=== PATIENT | female | born 1960 | race African-American/Black ===

== ENCOUNTER 2017-07-07 08:27 | Observation (INO) | payer BC ==
[2017-07-07 09:02] LABS: #Basophils 0.1 thou/uL (0.0-0.2); #Lymphocytes 2.9 thou/uL (1.20-3.40); #Monocytes 0.4 thou/uL (0.11-0.59); #Neutrophils 2.9 thou/uL (1.40-6.50); %Eosinophils 0.7 % (0.0-10.0); %Lymphocytes 45.1 % (21.0-51.0); %Monocytes 6.8 % (0.0-10.0); Hematocrit 44.9 % (36.0-47.0); Mean Platelet Volume 9.2 fL (7.4-10.4); Red Blood Cell (RBC) Count 4.94 mill/uL (4.20-5.40); White Blood Cell (WBC) Count 6.3 thou/uL (4.8-10.8)
[2017-07-07 09:23] LABS: ALT (SGPT) 16 U/L (8-55); AST (SGOT) 15 U/L (5-34); Alkaline Phosphatase 85 U/L (40-150); Anion Gap 13 mmol/L (10-20); BUN (Urea Nitrogen) 14 mg/dL (9.8-20.1); Bilirubin, Total 0.5 mg/dL (0.2-1.2); CK (CPK) 178 U/L (29-168); Calc. Creatinine Clearance 0 mL/min (70-130); Calcium 9.2 mg/dL (7.8-10.44); Carbon Dioxide 22 mmol/L (22-29); Chloride 108 mmol/L (98-107); Estimated GFR-MDRD Greater than 90; Globulin 3.5 g/dL (2.4-3.5); Lipase 22 U/L (8-78); Protein, Total 7.4 g/dL (6.0-8.3)
[2017-07-07 09:27] LABS: Troponin I Less than 0.010 ng/mL (< 0.028)
--- NOTE | 2017-07-07 09:39 | RAD ---
CHEST 1 VIEW: Date: 07/07/17 Time: 1014 hours HISTORY: Mid sternal chest pain. FINDINGS: The heart size is normal. The lungs are well expanded without focal areas of consolidation, pneumotho rax, or pleural effusions. IMPRESSION: No radiographic evidence of acute cardiopulmonary process. POS: C
[2017-07-07] MEDS ORDERED: Acetaminophen 500 MG TAB ONE (10:38)
[2017-07-07] MEDS ORDERED: Nitroglycerin 0.4 MG TAB (25 Tab Bottle) ONE (10:38)
[2017-07-07 12:07] VITALS: BMI 55.0
[2017-07-07] MEDS ORDERED: Ondansetron ODT 4 MG TAB SL PRN (12:11)
[2017-07-07] MEDS ORDERED: Ondansetron HCl/PF 4 MG/2 ML Vial IVP PRN ×2 (12:11→12:14)
[2017-07-07] MEDS ORDERED: Acetaminophen 325 MG TAB PO PRN ×2 (12:11→12:14)
[2017-07-07] MEDS ORDERED: hydrALAZINE 20 MG/ML VIAL SLOW IVP PRN (12:14)
[2017-07-07] MEDS ORDERED: Mag-Al 1200 mg/1200 mg/30 ML UDCUP PO PRN (12:14)
[2017-07-07] MEDS ORDERED: Sodium Chloride 0.65% Nasal 44 ML BOT EA NARE PRN (12:14)
[2017-07-07] MEDS ORDERED: Loperamide HCl 2 MG CAP PO PRN (12:14)
[2017-07-07] MEDS ORDERED: Ondansetron ODT 4 MG TAB PO PRN (12:14)
[2017-07-07] MEDS ORDERED: Diabetic Tussin 200 MG/10 ML UDCUP PO PRN (12:14)
[2017-07-07] MEDS ORDERED: Senokot 8.6 MG TAB PO PRN (12:14)
[2017-07-07] MEDS ORDERED: Milk Of Magnesia 30 ML UDCUP PO PRN (12:14)
[2017-07-07] MEDS ORDERED: Loratadine 10 MG TAB PO PRN (12:14)
[2017-07-07] MEDS ORDERED: Chloraseptic Spray 180 ml Bottle PO PRN (12:14)
[2017-07-07] MEDS ORDERED: Nitroglycerin 0.4 MG TAB (25 Tab Bottle) SL PRN (12:14)
[2017-07-07] MEDS ORDERED: Zolpidem Tartrate 5 MG TAB PO PRN (12:14)
--- NOTE | 2017-07-07 13:19 | SS ---
PRIMARY CARE PHYSICIAN: Abby Wheatley M.D. REASON FOR ADMISSION: Chest pain. DATE OF ADMISSION: 07/07/2017 at 10:38 a.m. HISTORY OF PRESENT ILLNESS: A 57-year-old -Al[place]ian female with morbid obesity who came to [facility] emergency room with complaint of chest pain. The patient had chest pain, left-sided, which was sta rted this morning around 8:00 a.m. The patient's pain started when she was seated. There was no ass ociation of palpitations, but she was feeling mild shortness of breath. She was feeling mild nausea, but no vomiting. She denies any associated diaphoresis. She was feeling dyspnea on exertion. She denies any cough. She denies any pleuritic chest pain. She denies any relation of chest pain with f ood and respirations. Patient denies any allergy symptoms. She denies any fever or chills. She den ies any exertion related discomfort. 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 She describes sharp pain which was intermittent since started. There was no specific aggravating or relieving factor. Her intensity of pain was about 5/10. After emergency room treatment, patient's pain was subsided and when I saw this patient on the floor, at that time she was chest pain free. REVIEW OF SYSTEMS: The following complete review of systems was negative, unless otherwise mentioned in the HPI or below: Constitutional: Weight loss or gain, ability to conduct usual activities. Skin: Rash, itching. Eyes: Double vision, pain. ENT/Mouth: Nose bleeding, neck stiffness, pain, tenderness. Cardiovascular: Palpitations, dyspnea on exertion, orthopnea. Respiratory: Shortness of breath, wheezing, cough, hemoptysis, fever or night sweats. Gastrointestinal: Poor appetite, abdominal pain, heartburn, nausea, vomiting, constipation, or diarr hea. Genitourinary: Urgency, frequency, dysuria, nocturia. Musculoskeletal: Pain, swelling. Neurologic/Psychiatric: Anxiety, depression. Allergy/Immunologic: Skin rash, bleeding tendency. Please see my HPI for pertinent positives and negatives. All other review of systems reviewed and ne gative except as mentioned in the HPI. ALLERGIES: No known drug allergies. CURRENT HOME MEDICATIONS: The patient is not taking any prescribed or non-prescribed medication. PAST MEDICAL HISTORY: Hypertension and morbid obesity. PAST SURGICAL HISTORY: x2. PAST PSYCHIATRIC HISTORY: Reviewed and negative. SOCIAL HISTORY: The patient is and lives at home with her . No history of tobacco, a lcohol or illicit drug abuse. She is working as a technical business systems analyst. FAMILY HISTORY: No strong family history of premature coronary artery disease, stroke or cancer. EMERGENCY ROOM COURSE: Patient was given Tylenol 1 g, nitroglycerin 0.4 mg sublingual and aspirin 32 5 mg. PHYSICAL EXAMINATION: VITAL SIGNS: On arrival, blood pressure 174/89, pulse 90, respiratory rate 16, temperature 98.8, sat uration 99% on room air. Weight 153.7 kilograms. GENERAL: The patient is currently alert, awake, no obvious acute distress. HEAD: Normocephalic, atraumatic. EYES: Pupils are round and reactive to light. Extraocular muscle intact. ENT: Oropharynx within normal limits. Moist mucous membranes. No oral lesions, no pharyngeal eryth hung, no exudate, no JVD, no thyromegaly, no carotid bruit. LUNGS: Clear to auscultation without any rhonchi or rales. CARDIAC: S1 and S2 regular without any significant murmur. ABDOMEN: Morbid obesity limiting examination. No peritoneal signs, no suprapubic tenderness, no mas s, no organomegaly. BACK: Examination unremarkable. No CVA tenderness. EXTREMITIES: Upper extremity passive movements of all joints are normal. Lower extremity: Patient does have nonpitting edema on both lower extremities. SKIN: No skin rash. NEUROLOGIC: Nonfocal examination. PSYCHIATRIC: Normal affect. NECK: No JVD and no thyromegaly. IMAGING AND SIGNIFICANT LABORATORY DATA: 1. EKG based on my review, normal sinus rhythm, premature ventricular complexes. 2. Chest x-ray based on my review, no acute cardiopulmonary process. 3. CBC: WBC 6.3, hemoglobin 13.5, platelets 185. 4. BMP: Sodium 139, potassium 3.8, chloride 108, carbon dioxide 22, anion gap 13, BUN 14, creatinin e 0.69, glucose 119, calcium 9.2. 5. LFT: AST 15, ALT 16, alkaline phosphatase 85, albumin 3.9, lipase 22. CK 178, CK-MB 3.2, tropon in I less than 0.010, BNP 40.0. ASSESSMENT AND PLAN/IMPRESSION: 1. Acute chest pain. The patient's chest pain description is atypical. Based on her description, m ost likely not anginal. She has risk factors for coronary artery disease including her age, obesity, and hypertension. She will require observation and we will rule out acute coronary syndrome. Kim simms, continue with aspirin 325 mg p.o. daily and nitro patch q.8 hourly. We will perform exercise C ardiolite stress test. We will do serial cardiac enzymes to rule out acute coronary syndrome. We wi ll also continue with Pepcid 20 mg p.o. b.i.d. 2. Hypertension. We will continue with nitro patch q.8 hourly. We will monitor patient's vitals mo re frequently and if blood pressure remains high, then we will consider adding antihypertensive medic ation upon discharge. 3. Morbid obesity with body mass index 55. Dietary education given. Weight loss education given. Healthy lifestyle measures discussed with the patient. 4. Deep venous thrombosis prophylaxis not needed because we are expecting discharge in 24 hours. 5. Gastrointestinal prophylaxis, Pepcid 20 mg p.o. b.i.d. 6. CODE STATUS: Patient is FULL CODE. Patient's is surrogate decision maker. Disposition plan based on clinical course. 7. Lower extremity edema. Most likely this patient has nonpitting edema. We will check TSH and ech ocardiography to assess EF and other structural abnormality. Plan of care discussed with the family member at bedside.
[2017-07-07] MEDS: Nitroglycerin 2% Ointment 1 INCH/1 GM Packet TOP SCH ×2 (13:24→22:46)
[2017-07-07 13:34] LABS: Troponin I 0.012 ng/mL (< 0.028)
[2017-07-07] MEDS ORDERED: Labetalol HCl 100 MG/20 ML VIAL SLOW IVP PRN (15:56)
[2017-07-07] MEDS ORDERED: cloNIDine 0.1 MG TAB PO PRN (15:56)
[2017-07-07] MEDS: HYDROcodone/Acetaminophen 5/325 mg Tablet PO PRN ×2 (16:22→20:26)
[2017-07-07 16:34] LABS: Troponin I 0.015 ng/mL (< 0.028)
[2017-07-07] MEDS ORDERED: Regadenoson 0.4 MG/5 ML SYRINGE ONE (17:13)
[2017-07-07] MEDS: Lisinopril 10 MG TAB PO SCH (19:01)
[2017-07-07] MEDS: Famotidine 20 MG TAB PO SCH (19:01)
[2017-07-07] MEDS ORDERED: Lisinopril 5 MG TAB PO SCH (21:00)
[2017-07-08] MEDS: HYDROcodone/Acetaminophen 5/325 mg Tablet PO PRN (02:07)
[2017-07-08 07:28] VITALS: TEMP 98.2
[2017-07-08] MEDS: Nitroglycerin 2% Ointment 1 INCH/1 GM Packet TOP SCH (07:40)
[2017-07-08] MEDS: Lisinopril 10 MG TAB PO SCH (08:34)
[2017-07-08] MEDS: Famotidine 20 MG TAB PO SCH (08:34)
[2017-07-08] MEDS ORDERED: Aspirin 325 MG TAB PO SCH (09:00)
--- NOTE | 2017-07-08 09:36 | NM ---
MYOCARDIAL PERFUSION EVALUATION: INDICATION: Chest pain. RADIOPHARMACEUTICAL: 28.1 mCi technetium-99m sestamibi with stress and 33.0 mCi technetium-99m sestamibi with rest. PHYSIOLOGIC DATA: The patient achieved 68% of maximal age-predicted heart rate utilizing the Lexiscan stress test rocco col. Please see the stress test report for full details concerning the patient's physiologic data. FINDINGS: There is left ventricular dilatation seen on both rest and stress images. There is a moderate size re gion of mild reduced activity involving the mid to apical inferior wall and apex seen on both the res t and stress images, likely related to overlying soft tissue attenuation from the patient's large lef t breast best seen on the raw data. There was normal wall motion and thickening. Estimated LVEF is 57 %. IMPRESSION: Probably normal myocardial perfusion evaluation: 1. There is a moderate size region of mild reduced activity involving the mid to apical inferior wal l and apex likely related to the patient's overlying left breast soft tissue attenuation. 2. Mild left LV dilatation seen on both the rest and stress images. 3. LVEF of 57%. POS: [facility]
--- NOTE | 2017-07-08 10:22 | PDOC.PN ---
- Subjective Encounter Start Date: 07/08/17 Encounter Start Time: 09:40 Patient seen and examined. No new complaints. No overnight events - Objective Resuscitation Status: Resuscitation Status FULL:Full Resuscitation MAR Reviewed: Yes Vital Signs & Weight: Vital Signs (12 hours) Temp Pulse Resp BP Pulse Ox 07/08/17 07:29 98.2 F 78 18 07/08/17 07:15 98.2 F 78 18 183/81 H 97 07/08/17 04:05 98.0 F 73 18 163/76 H 95 07/08/17 00:02 82 18 142/67 H 96 Weight Weight 339 lb 6.4 oz I&O: 07/07/17 07/08/17 07/09/17 06:59 06:59 06:59 Intake Total 240 Balance 240 Result Diagrams: 07/07/17 08:52 07/07/17 08:52 Radiology Reviewed by me: Yes EKG Reviewed by me: Yes (nsr) Phys Exam - Physical Examination Constitutional: NAD HEENT: PERRLA, moist MMs, sclera anicteric Neck: no JVD, supple Respiratory: no wheezing, no rales, no rhonchi Cardiovascular: RRR, no significant murmur, no rub Gastrointestinal: soft, non-tender, no distention, positive bowel sounds Musculoskeletal: no edema, pulses present Neurological: non-focal, normal sensation Lymphatic: no nodes Psychiatric: normal affect, A&O x 3 Skin: no rash, normal turgor Dx/Plan (1) Chest pain Code(s): R07.9 - CHEST PAIN, UNSPECIFIED Status: Acute (2) Hypertension Code(s): I10 - ESSENTIAL (PRIMARY) HYPERTENSION Status: Acute (3) Morbid obesity with BMI of 50.0-59.9, adult Code(s): E66.01 - MORBID (SEVERE) OBESITY DUE TO EXCESS CALORIES; Z68.43 - BODY MASS INDEX (BMI) 50-59.9 , ADULT Status: Chronic - Plan cont current plan of care * medication reviewed as below * symptomatic treatment * stress test is normal * await echo * add lisinopril, coreg, lasix on discharge * possible discharge later today. Review of Systems - Review of Systems ENT: negative: Ear Pain, Ear Discharge, Nose Pain, Nose Discharge, Nose Congestion, Mouth Pain, Mouth Swelling, Throat Pain, Throat Swelling, Other Respiratory: negative: Cough, Dry, Shortness of Breath, Hemoptysis, SOB with Excertion, Pleuritic Pain, Sputum, Wheezing Cardiovascular: negative: Chest Pain, Palpitations, Orthopnea, Paroxysmal Noc. Dyspnea, Edema, Light Headedness, Other Gastrointestinal: negative: Nausea, Vomiting, Abdominal Pain, Diarrhea, Constipation, Melena, Hematochezia, Other Genitourinary: negative: Dysuria, Frequency, Incontinence, Hematuria, Retention , Other Musculoskeletal: negative: Neck Pain, Shoulder Pain, Arm Pain, Back Pain, Hand Pain, Leg Pain, Foot Pain, Other - Medications/Allergies Allergies/Adverse Reactions: Allergies Allergy/AdvReac Type Severity Reaction Status Date / Time No Known Drug Allergies Allergy Verified 07/07/17 13:26 Medications: Current Medications Acetaminophen (Tylenol) 650 mg PO Q4H PRN PRN Reason: Headache/Fever or Pain Hydrocodone Bitart/Acetaminophen ([place] 5/325) 1 tab PO Q4H PRN PRN Reason: Moderate Pain (4-6) Last Admin: 07/08/17 02:07 Dose: 1 tab Al Hydroxide/Mg Hydroxide (Maalox) 30 ml PO Q6H PRN PRN Reason: Heartburn or Indigestion Aspirin (Aspirin) 325 mg PO DAILY [facility] Last Admin: 07/08/17 08:34 Dose: 325 mg Clonidine (Catapres) 0.1 mg PO Q4H PRN PRN Reason: SBP GREATER THAN 160 Last Admin: 07/07/17 16:22 Dose: 0.1 mg Famotidine (Pepcid) 20 mg PO BID [facility] Last Admin: 07/08/17 08:34 Dose: 20 mg Guaifenesin (Robitussin Sf) 200 mg PO Q4H PRN PRN Reason: Cough Hydralazine HCl (Apresoline) 10 mg SLOW IVP Q4H PRN PRN Reason: Systolic BP > 180 Last Admin: 07/07/17 13:19 Dose: 10 mg Labetalol HCl (Normodyne) 10 mg SLOW IVP Q2H PRN PRN Reason: SBP GREATER THAN 160 Lisinopril (Zestril) 10 mg PO BID [facility] Last Admin: 07/08/17 08:34 Dose: 10 mg Loperamide HCl (Imodium) 2 mg PO PRN PRN PRN Reason: Diarrhea/Loose Stools Loratadine (Claritin) 10 mg PO DAILYPRN PRN PRN Reason: Sinus Symptoms Magnesium Hydroxide (Milk Of Magnesium) 30 ml PO DAILYPRN PRN PRN Reason: Constipation Nitroglycerin (Nitrostat) 0.4 mg SL Q5MIN PRN PRN Reason: Chest Pain Nitroglycerin (Nitro-Bid 2% Ointment) 0.5 inch TOP Q8HR TENISHA Last Admin: 07/08/17 07:40 Dose: Not Given Ondansetron HCl (Zofran Odt) 4 mg PO Q6H PRN PRN Reason: Nausea/Vomiting Ondansetron HCl (Zofran) 4 mg IVP Q6H PRN PRN Reason: Nausea/Vomiting Phenol (Chloraseptic [place] 180 Ml Bot) 0 ml PO PRN PRN PRN Reason: Sore Throat Senna (Senokot) 2 tab PO HSPRN PRN PRN Reason: Constipation Sodium Chloride (Treasure Nasal [place] 0.65%) 0 ml EA NARE QIDPRN PRN PRN Reason: Nasal Congestion Zolpidem Tartrate (Ambien) 5 mg PO HSPRN PRN PRN Reason: Insomnia
[2017-07-08 11:20] VITALS: BP 136/75
--- NOTE | 2017-07-08 11:46 | DIS ---
PRIMARY CARE PHYSICIAN: [facility] call admission. DATE OF ADMISSION: 07/07/2017 DATE OF DISCHARGE: 07/08/2017 DISCHARGE DISPOSITION: Home. PRIMARY DISCHARGE DIAGNOSES: 1. Chest pain, ruled out acute coronary syndrome. 2. New onset hypertension. SECONDARY DISCHARGE DIAGNOSES: Morbid obesity with body mass index of 54. PRIMARY PROCEDURE/OPERATION: None. RADIOLOGICAL INVESTIGATION: Chest x-ray normal. Stress test reported, moderate sized region of mild reduced activity in mid to apical inferior wall and apex, likely related with left breast soft tissu e attenuation. Chest x-ray normal. SIGNIFICANT DATA: CBC normal. BMP normal. LFTs normal. Cardiac enzymes negative. LDL 195, lipase 22. DISCHARGE MEDICATIONS: Aspirin 81 mg p.o. daily, Coreg 12.5 mg p.o. b.i.d., Pepcid 20 mg p.o. b.i.d. , Lasix 20 mg p.o. daily, lisinopril 10 mg p.o. b.i.d. CONTRAINDICATIONS: None. CODE STATUS: FULL CODE. INPATIENT CONSULTANTS: None. ALLERGIES: No known drug allergy. DISCHARGE PLAN: Post hospital, the patient will follow with primary care physician for further adjus tment of blood pressure medication. HOSPITAL COURSE: A 57-year-old female who was admitted by me. Please see my short-stay summary for presentation. She came to the emergency room for chest pain. Her EKG was nonspecific. Her chest x- ray was normal. Her routine blood tests including cardiac enzymes were negative. She was admitted t o telemetry floor for observation. During this admission, we noted that her blood pressure was out o f control and that is why we started new antihypertensive medication and with that her blood pressure was well improved. We did a stress test and that showed breast attenuation on the left side. This patient does not have any abnormal stress test clinically. We also obtained echocardiography, officia l echo report is pending. The patient is seen and examined at bedside today. Please see my progress note from today for furthe r details. The patient is medically stable for discharge later on today.
--- NOTE | 2017-07-30 12:51 | EKG ---
Test Reason : Blood Pressure : / mmHG Vent. Rate : 099 BPM Atrial Rate : 099 BPM P-R Int : 162 ms QRS Dur : 096 ms QT Int : 360 ms P-R-T Axes : 072 034 030 degrees QTc Int : 462 ms Sinus rhythm with Premature supraventricular complexes and with occasional , and consecutive Prematur e ventricular complexes No STEMI Abnormal ECG Confirmed by KHANG RODRIGUEZ ([id number]), editor producer LETI GARCIA ([id number] on 07/30/2017 12:50:40 PM Referred By: Confirmed By:KHANG RODRIGUEZ
== END 2017-07-08 12:35 | disposition home or self-care (01) ==
LOC: ERS 08:27 → 2SW 10:38
PROVIDERS: ADMIT Internal Medicine; ATTEND Internal Medicine
DX: R07.9 Chest pain, unspecified (principal); I10 Essential (primary) hypertension; E66.01 Morbid (severe) obesity due to excess calories; Z68.43 Body mass index [BMI] 50.0-59.9, adult; Z98.890 Other specified postprocedural states
CPT/HCPCS: 36415; 71010; 78452; 80053; 80061; 82550; 82553; 83690; 83880; 84484; 85025; 93005; 93017; 93306; 96374; A9500; G0378; J0360; J2785

== ENCOUNTER 2024-05-05 12:04 | Inpatient (IN) | payer BC ==
[~2024-05-05 12:04] MED LIST: Iopamidol-370 76% 500 ML MDV (1 ML CHARGE) ONE
[2024-05-05] MEDS ORDERED: Ondansetron PF 4 MG/2 ML Vial ONE (13:42)
[2024-05-05 14:56] LABS: Hematocrit 29.2 % (36.0-47.0); Hemoglobin 8.3 g/dL (12.0-16.0); Mean Corpuscular HGB CONC 28.4 g/dL (32.0-36.0); Mean Corpuscular Hemoglobin 23.5 pg (27.0-31.0); Mean Corpuscular Volume 82.7 fL (78.0-98.0); Platelet Count 99 10x3/uL (130-400); Red Blood Cell (RBC) Count 3.53 mill/uL (4.20-5.40)
[2024-05-05 15:07] LABS: PTT 24.8 sec (22.9-36.1)
[2024-05-05 15:08] LABS: INR-International Normal Ratio 1.4
[2024-05-05 15:10] LABS: ALT (SGPT) 16 U/L (8-55); AST (SGOT) 34 U/L (5-34); Alkaline Phosphatase 184 U/L (40-110); Anion Gap 16 mmol/L (10-20); BUN (Urea Nitrogen) 16 mg/dL (9.8-20.1); Bilirubin, Total 1.7 mg/dL (0.2-1.2); Calc. Creatinine Clearance 0 mL/min (70-130); Calcium 7.6 mg/dL (7.8-10.44); Carbon Dioxide 20 mmol/L (23-31); Chloride 112 mmol/L (98-107); Estimated GFR 56; Globulin 3.6 g/dL (2.4-3.5); Glucose 115 mg/dL (80-115); Potassium 3.5 mmol/L (3.5-5.1); Protein, Total 5.6 g/dL (5.8-8.1); Sodium 144 mmol/L (136-145)
[2024-05-05 15:15] LABS: Troponin I 0.012 ng/mL (< 0.028)
[2024-05-05 15:16] LABS: D-Dimer Test 4.61 mcg/mL (0.27-0.43)
[2024-05-05 15:19] LABS: Burr Cells SLIGHT = 2-5 cells HPF (0-1); Hypochromia SLIGHT = 6-15 cells HPF (0-5); Lymphocytes 95 % (21-51); Nucleated RBC (Manual Ct) 28 % (0); Platelet Adequacy Comment Platelets Decreased; Polychromasia SLIGHT = 2-3 cells HPF (0-2); Reactive Lymphocytes 4 % (0-10); Reflex for Review?? YES; Schistocytes SLIGHT = 2-5 cells HPF (0-1); Smudge Cells 59.8 %; Target Cells SLIGHT = 2-5 cells HPF (0-1)
[2024-05-05] MEDS ORDERED: Enoxaparin 120 MG/0.8 ML SYRINGE SC SCH (17:15)
[2024-05-05] MEDS ORDERED: Calcium Carbonate 500 MG ChewTAB PO PRN (17:29)
[2024-05-05] MEDS ORDERED: Communication Order-Pharmacy FS ONE (17:35)
[2024-05-05] MEDS ORDERED: Nitroglycerin 0.4 MG TAB (25 Tab Bottle) SL PRN (17:39)
[2024-05-05] MEDS ORDERED: Aluminum & Magnesium Hydroxide 60 ML, Lidocaine 2% Viscous Solution 30 ML, diphenhydrAM... SSW PRN (17:43)
[2024-05-05] MEDS ORDERED: MAGIC MOUTHWASH 10 ML UDCUP SSW PRN (17:53)
[2024-05-05 17:58] LABS: Magnesium 1.7 mg/dL (1.6-2.6)
[2024-05-05 18:46] LABS: Troponin I 0.015 ng/mL (< 0.028)
[2024-05-05 21:39] LABS: Troponin I 0.021 ng/mL (< 0.028)
[2024-05-05] MEDS: Pantoprazole DR 40 MG TAB PO SCH (22:28)
[2024-05-05] MEDS: Multivit, Therapeutic 1 TAB PO SCH (22:28)
[2024-05-05] MEDS: Magnesium 2 GM/50 ML(in water) 2 GM in Premix 1 BAG IVPB SCH (22:29)
[2024-05-05 22:33] VITALS: BMI 39.9
[2024-05-06 05:50] LABS: Hematocrit 29.4 % (36.0-47.0); Hemoglobin 8.7 g/dL (12.0-16.0); Mean Corpuscular HGB CONC 29.6 g/dL (32.0-36.0); Mean Corpuscular Hemoglobin 23.8 pg (27.0-31.0); Mean Corpuscular Volume 80.3 fL (78.0-98.0); Platelet Count 125 10x3/uL (130-400); RBC Distribution Width 35.7 % (11.5-14.5); Red Blood Cell (RBC) Count 3.66 mill/uL (4.20-5.40)
[2024-05-06 06:30] LABS: Burr Cells SLIGHT = 2-5 cells HPF (0-1); Hypochromia SLIGHT = 6-15 cells HPF (0-5); Lymphocytes 81 % (21-51); Monocytes 14 % (0-10); Neutrophil 1 % (42-75); Nucleated RBC (Manual Ct) 21 % (0); Platelet Adequacy Comment Platelets Decreased; Poikilocytosis SLIGHT = 6-15 cells HPF (0-5); Polychromasia SLIGHT = 2-3 cells HPF (0-2); Reactive Lymphocytes 2 % (0-10); Target Cells SLIGHT = 2-5 cells HPF (0-1)
[2024-05-06 06:39] LABS: ALT (SGPT) 14 U/L (8-55); AST (SGOT) 29 U/L (5-34); Albumin 1.9 g/dL (3.4-4.8); Alkaline Phosphatase 168 U/L (40-110); Anion Gap 11 mmol/L (10-20); BUN (Urea Nitrogen) 16 mg/dL (9.8-20.1); Bilirubin, Total 1.4 mg/dL (0.2-1.2); Calc. Creatinine Clearance 102 mL/min (70-130); Calcium 7.5 mg/dL (7.8-10.44); Carbon Dioxide 20 mmol/L (23-31); Chloride 112 mmol/L (98-107); Estimated GFR 57; Globulin 3.5 g/dL (2.4-3.5); Glucose 100 mg/dL (80-115); Potassium 3.3 mmol/L (3.5-5.1); Protein, Total 5.4 g/dL (5.8-8.1); Sodium 140 mmol/L (136-145)
[2024-05-06] MEDS: Enoxaparin 120 MG/0.8 ML SYRINGE SC SCH (06:47)
[2024-05-06] MEDS: FLU (Fluarix Triv) TS24-25(6MOS UP)/PF 45 MCG/0.5 ML Syringe IM ONE (09:58)
[2024-05-06] MEDS: Potassium Bicarbonate/Cit Ac 20 MEQ TAB PO SCH ×2 (09:58→19:42)
[2024-05-06] MEDS: Furosemide 40 MG (4 mL) VIAL SLOW IVP SCH ×2 (09:58→14:38)
[2024-05-06] MEDS: Acetaminophen 325 MG TAB PO PRN (19:41)
[2024-05-07] MEDS ORDERED: Potassium Chloride 20 MEQ TAB PO SCH (08:00)
[2024-05-07] MEDS ORDERED: Aluminum & Magnesium Hydroxide 60 ML, diphenhydrAMINE 150 MG, Lidocaine 2% Viscous Solu... SSW PRN (08:33)
[2024-05-07 11:05] LABS: ALT (SGPT) 13 U/L (8-55); AST (SGOT) 29 U/L (5-34); Albumin 1.9 g/dL (3.4-4.8); Alkaline Phosphatase 170 U/L (40-110); Anion Gap 15 mmol/L (10-20); BUN (Urea Nitrogen) 22 mg/dL (9.8-20.1); Bilirubin, Total 1.4 mg/dL (0.2-1.2); Calc. Creatinine Clearance 78 mL/min (70-130); Calcium 7.9 mg/dL (7.8-10.44); Carbon Dioxide 23 mmol/L (23-31); Chloride 104 mmol/L (98-107); Estimated GFR 42; Globulin 3.7 g/dL (2.4-3.5); Glucose 114 mg/dL (80-115); Potassium 3.4 mmol/L (3.5-5.1); Protein, Total 5.6 g/dL (5.8-8.1); Sodium 139 mmol/L (136-145)
[2024-05-07 11:11] LABS: Hematocrit 29.8 % (36.0-47.0); Mean Corpuscular HGB CONC 30.2 g/dL (32.0-36.0); Mean Corpuscular Hemoglobin 23.9 pg (27.0-31.0); Platelet Count 173 10x3/uL (130-400); RBC Distribution Width 35.9 % (11.5-14.5); Red Blood Cell (RBC) Count 3.77 mill/uL (4.20-5.40)
[2024-05-07 11:57] VITALS: BMI 39.9
[2024-05-07 13:31] LABS: Anisocytosis SLIGHT = 6-15 cells HPF (0-5); Band 20 % (5-11); Burr Cells SLIGHT = 2-5 cells HPF (0-1); Eosinophils 1 % (0-10); Hypochromia SLIGHT = 6-15 cells HPF (0-5); Large Platelets 24.8 % (0-5); Lymphocytes 40 % (21-51); Metamyelocyte 1 % (0-0); Monocytes 16 % (0-10); Myelocyte 1 % (0-0); Neutrophil 12 % (42-75); Nucleated RBC (Manual Ct) 24 % (0); Plasma Cells 2 % (0-0); Platelet Adequacy Comment Platelets Normal; Poikilocytosis SLIGHT = 6-15 cells HPF (0-5); Polychromasia MODERATE = 3-4 cells HPF (0-2); Reactive Lymphocytes 6 % (0-10); Schistocytes SLIGHT = 2-5 cells HPF (0-1); Smudge Cells 53.3 %; Target Cells SLIGHT = 2-5 cells HPF (0-1)
[2024-05-07] MEDS: Apixaban 5 MG TAB PO SCH (17:28)
[2024-05-07] MEDS ORDERED: Apixaban 5 MG TAB PO SCH (21:00)
[2024-05-08 09:54] LABS: Hematocrit 29.4 % (36.0-47.0); Hemoglobin 8.9 g/dL (12.0-16.0); Mean Corpuscular HGB CONC 30.3 g/dL (32.0-36.0); Mean Corpuscular Hemoglobin 24.2 pg (27.0-31.0); Mean Corpuscular Volume 79.9 fL (78.0-98.0); Platelet Count 216 10x3/uL (130-400); RBC Distribution Width 35.8 % (11.5-14.5); Red Blood Cell (RBC) Count 3.68 mill/uL (4.20-5.40)
[2024-05-08 10:17] LABS: Anisocytosis SLIGHT = 6-15 cells HPF (0-5); Band 10 % (5-11); Burr Cells MODERATE= 6-15 cells HPF (0-1); Elliptocytes SLIGHT = 2-5 cells HPF (0-1); Large Platelets 12.1 % (0-5); Lymphocytes 24 % (21-51); Macrocytosis SLIGHT = 6-15 cells HPF (0-5); Monocytes 10 % (0-10); Neutrophil 42 % (42-75); Nucleated RBC (Manual Ct) 6 % (0); Platelet Adequacy Comment Platelets Normal; Poikilocytosis SLIGHT = 6-15 cells HPF (0-5); Polychromasia SLIGHT = 2-3 cells HPF (0-2); Reactive Lymphocytes 13 % (0-10)
[2024-05-08 13:28] VITALS: BP 110/68; TEMP 98.6
[2024-05-12] MEDS ORDERED: Apixaban 5 MG TAB PO SCH (18:00)
== END 2024-05-08 15:07 | disposition home or self-care (01) | DRG 175 ==
LOC: ERS 12:04 → 2NO 17:26
PROVIDERS: ADMIT Internal Medicine; ATTEND Hospitalist
DX: I26.99 Other pulmonary embolism without acute cor pulmonale (principal); D61.810 Antineoplastic chemotherapy induced pancytopenia; C18.9 Malignant neoplasm of colon, unspecified; C78.00 Secondary malignant neoplasm of unspecified lung; C78.7 Secondary malignant neoplasm of liver and intrahepatic bile duct; E87.6 Hypokalemia; Z79.899 Other long term (current) drug therapy; Z79.82 Long term (current) use of aspirin; E66.01 Morbid (severe) obesity due to excess calories; Z68.39 Body mass index [BMI] 39.0-39.9, adult; I10 Essential (primary) hypertension; D72.819 Decreased white blood cell count, unspecified
CPT/HCPCS: 36415; 71045; 71275; 74177; 80053; 83735; 83880; 84484; 85025; 85060; 85379; 85610; 85730; 90656; 93005; 93306; 93970; 94760; 96372; 96374; J1650; J1940; J2405; J3475; Q9967

== ENCOUNTER 2024-05-26 04:03 | Emergency (ER) | payer BC ==
[2024-05-26 06:45] LABS: ALT (SGPT) 21 U/L (8-55); AST (SGOT) 40 U/L (5-34); Albumin 2.1 g/dL (3.4-4.8); Alkaline Phosphatase 288 U/L (40-110); Anion Gap 14 mmol/L (10-20); BUN (Urea Nitrogen) 23 mg/dL (9.8-20.1); Calc. Creatinine Clearance 0 mL/min (70-130); Calcium 7.9 mg/dL (7.8-10.44); Carbon Dioxide 23 mmol/L (23-31); Chloride 103 mmol/L (98-107); Estimated GFR 53; Globulin 4.1 g/dL (2.4-3.5); Glucose 98 mg/dL (80-115); Potassium 3.4 mmol/L (3.5-5.1); Protein, Total 6.2 g/dL (5.8-8.1); Sodium 137 mmol/L (136-145)
[2024-05-26 06:47] LABS: Hemoglobin 8.3 g/dL (12.0-16.0); Mean Corpuscular HGB CONC 30.7 g/dL (32.0-36.0); Mean Corpuscular Hemoglobin 25.5 pg (27.0-31.0); Mean Corpuscular Volume 83.1 fL (78.0-98.0); Mean Platelet Volume 9.5 fL (7.4-10.4); Platelet Count 192 10x3/uL (130-400); Red Blood Cell (RBC) Count 3.25 mill/uL (4.20-5.40)
[2024-05-26] MEDS ORDERED: Morphine 4 MG/ML VIAL ONE (07:27)
[2024-05-26] MEDS ORDERED: Morphine 2 MG/ML VIAL ONE (07:28)
[2024-05-26 07:34] LABS: Anisocytosis SLIGHT = 6-15 cells HPF (0-5); Band 23 % (5-11); Hypochromia SLIGHT = 6-15 cells HPF (0-5); Lymphocytes 25 % (21-51); Metamyelocyte 2 % (0-0); Monocytes 8 % (0-10); Neutrophil 37 % (42-75); Nucleated RBC (Manual Ct) 2 % (0); Platelet Adequacy Comment Platelets Normal; Polychromasia MODERATE = 3-4 cells HPF (0-2); Reactive Lymphocytes 2 % (0-10); Target Cells SLIGHT = 2-5 cells HPF (0-1)
[2024-05-26 07:42] LABS: Reflex for Review?? YES
[2024-05-26 08:22] LABS: Troponin I 0.044 ng/mL (< 0.028)
== END 2024-05-26 08:25 | disposition home or self-care (01) ==
LOC: ERS 04:03
DX: M79.605 Pain in left leg (principal); R06.00 Dyspnea, unspecified; R79.89 Other specified abnormal findings of blood chemistry; I10 Essential (primary) hypertension; Z55.0 Illiteracy and low-level literacy
CPT/HCPCS: 36415; 71045; 80053; 83880; 84484; 85025; 85060; 93005; 96374; J2272